=== PATIENT | female | born 1970 | race Caucasian/White ===

== ENCOUNTER 2023-06-06 13:17 | Outpatient (CLI) | payer OTHER, SELFPAY | END 2023-06-06 13:18 | disposition home or self-care (01) | LOC: LONREF 13:18 | PROVIDERS: PCP Family Medicine; Visit Provider Family Medicine | DX: Z01.818 Encounter for other preprocedural examination (principal) | CPT/HCPCS: 80048 ==

== ENCOUNTER 2023-06-12 07:57 | Outpatient (CLI) | payer OTHER, SELFPAY ==
--- NOTE | 2023-06-12 09:45 | W.ANESCHARGE ---
Anesthesia Charges Start Date/Time Anesthesia Start Date: 06/12/23 Anesthesia Start Time: 10:10 Stop Date/Time Anesthesia Stop Date: 06/12/23 Anesthesia Stop Time: 10:45
--- NOTE | 2023-06-12 10:47 | W.ANESCHARGE ---
Anesthesia Charges Start Date/Time Anesthesia Start Date: 06/12/23 Anesthesia Start Time: 10:10 Stop Date/Time Anesthesia Stop Date: 06/12/23 Anesthesia Stop Time: 10:45
== END 2023-06-12 07:58 | disposition home or self-care (01) ==
LOC: OP CLINIC 07:57
PROVIDERS: PCP Family Medicine; Visit Provider Surgery
DX: Z12.11 Encounter for screening for malignant neoplasm of colon (principal); K63.5 Polyp of colon; Z83.719 Family history of colon polyps, unspecified
CPT/HCPCS: 00811; 45381; 45385; 88305; J2704

== ENCOUNTER 2024-06-03 07:51 | Outpatient (CLI) | payer OTHER, SELFPAY ==
--- NOTE | 2024-06-03 09:06 | W.ANESCHARGE ---
Anesthesia Charges Start Date/Time Anesthesia Start Date: 06/03/24 Anesthesia Start Time: 08:35 Stop Date/Time Anesthesia Stop Date: 06/03/24 Anesthesia Stop Time: 09:03
--- NOTE | 2024-06-03 09:21 | W.ANESCHARGE ---
Anesthesia Charges Start Date/Time Anesthesia Start Date: 06/03/24 Anesthesia Start Time: 08:35 Stop Date/Time Anesthesia Stop Date: 06/03/24 Anesthesia Stop Time: 09:03
== END 2024-06-03 07:52 | disposition home or self-care (01) ==
PROVIDERS: PCP Family Medicine; Visit Provider Internal Medicine
DX: D12.5 Benign neoplasm of sigmoid colon (principal); K57.30 Diverticulosis of large intestine without perforation or abscess without bleeding; Z86.0100 Personal history of colon polyps, unspecified; Z98.890 Other specified postprocedural states
CPT/HCPCS: 00811; 45380; 88305; J2704

== ENCOUNTER 2024-06-24 11:17 | Outpatient (CLI) | payer OTHER, SELFPAY ==
[2024-06-27 05:22] LABS: HPV Source Cervix; HPV, High Risk by TMA Not Detected
== END 2024-06-24 11:18 | disposition home or self-care (01) ==
PROVIDERS: PCP Family Medicine; Visit Provider Family Medicine
DX: Z00.00 Encounter for general adult medical examination without abnormal findings (principal); Z12.4 Encounter for screening for malignant neoplasm of cervix; Z11.51 Encounter for screening for human papillomavirus (HPV)
CPT/HCPCS: 87624; 87625; 88141; 88142

== ENCOUNTER 2024-06-30 12:19 | Outpatient (CLI) | payer OTHER, SELFPAY ==
--- NOTE | 2024-06-30 13:00 | CRLHL7_ITS ---
For Patients: As a result of the Century Cures Act, medical imaging exams and procedure reports are released immediately into your electronic medical record. You may view this report before your referring provider. If you have questions, please contact your health care provider. BILATERAL SCREENING MAMMOGRAM WITH COMPUTER-AIDED DETECTION AND TOMOSYNTHESIS TECHNIQUE: CC and MLO views were obtained. These mammographic images have been obtained using full-field digital technique. These mammographic images were interpreted with the benefit of computer-aided detection. Breast Tomosynthesis was used in this interpretation. COMPARISON FILM: 05/02/21, 01/27/20, 12/05/18. FINDINGS: There are scattered areas of fibroglandular density. IMPRESSION: There is no radiographic evidence for malignancy. ASSESSMENT: BI-RADS Category 1: Negative RECOMMENDATION: Routine screening mammogram in 1 year. A lay language report of this examination will be provided to the patient. Moises Jernigan M.D. Diagnostic Radiologist [email or web address] SP/Dictated by: Moises Jernigan MD @ 07/02/2024 11:14:00 AM (Electronically Signed)
== END 2024-06-30 12:20 | disposition home or self-care (01) ==
LOC: MAMMO 12:20
PROVIDERS: PCP Family Medicine; Visit Provider Family Medicine
DX: Z12.31 Encounter for screening mammogram for malignant neoplasm of breast (principal)
CPT/HCPCS: 77063; 77067